=== PATIENT | female | born 1945 | race Caucasian/White ===

== ENCOUNTER 2024-12-16 06:27 | Emergency (ER) | payer MEDICARE, BC ==
[~2024-12-16] VITALS: Ht 160 cm; Wt 62.6 kg
[2024-12-16] MEDS ORDERED: LIDOCAINE 5% (PATCH) 1 EA PATCH TP ONE (07:03)
[2024-12-16] MEDS ORDERED: ACETAMINOPHEN 325 MG TABLET ONE (07:03)
[2024-12-16] MEDS ORDERED: METHOCARBAMOL (500MG) 500 MG TABLET ONE (07:03)
[2024-12-16] MEDS ORDERED: KETOROLAC TROMETHAMINE 15 MG/ML VIAL ONE (07:03)
[2024-12-16] MEDS ORDERED: METH4TAB17 PO (07:14)
[2024-12-16] MEDS: LIDOCAINE 5% (PATCH) 1 EA PATCH TP STA (07:14)
[2024-12-16] MEDS ORDERED: ACET-2605 PO (07:14)
[2024-12-16] MEDS ORDERED: IBUP-1955 PO (07:14)
[2024-12-16] MEDS ORDERED: METH-647 PO (07:14)
[2024-12-16] MEDS ORDERED: LIDO30AD10 TP (07:14)
[2024-12-16] MEDS: KETOROLAC TROMETHAMINE 15 MG/ML VIAL IM ONE (07:15)
[2024-12-16] MEDS: ACETAMINOPHEN 325 MG TABLET PO ONE (07:15)
[2024-12-16] MEDS: METHOCARBAMOL (500MG) 500 MG TABLET PO ONE (07:15)
[2024-12-16] MEDS ORDERED: TRAM50TA2 PO (08:02)
[2024-12-16] MEDS ORDERED: TRAMADOL HCL 50 MG TABLET ONE (08:06)
[2024-12-16] MEDS: TRAMADOL HCL 50 MG TABLET PO ONE (08:10)
[2024-12-16 08:16] VITALS: BP 126/69; TEMP 98.1; O2SAT 98
== END 2024-12-16 08:35 | disposition home or self-care (01) ==
LOC: ER 06:30
DX: M54.50 Low back pain, unspecified (principal); I10 Essential (primary) hypertension; M17.12 Unilateral primary osteoarthritis, left knee
CPT/HCPCS: 99284; 96372; J1885